=== PATIENT | male | born 1955 | race Caucasian/White ===

== ENCOUNTER 2022-06-19 10:14 | Emergency (ER) | payer BC ==
[2022-06-19] MEDS ORDERED: Sodium Chloride 0.9% 10 ML Syringe FLUSH PRN (10:26)
[2022-06-19] MEDS ORDERED: Gadobenate Dimeglumine 529 MG/ML 15 ML SDV IVPUSH ONE (10:38)
[2022-06-19 10:55] LABS: ANION GAP 9.7 meq/L (7-15)
[2022-06-19] MEDS ORDERED: Sodium Chloride 0.9% 1,000 ML IV ONE (12:28)
== END 2022-06-19 14:40 | disposition home or self-care (01) ==
LOC: LL.ED 10:14
DX: G44.1 Vascular headache, not elsewhere classified (principal); R42 Dizziness and giddiness; H53.8 Other visual disturbances; R26.89 Other abnormalities of gait and mobility
CPT/HCPCS: 36415; 70553; 80053; 85025; 96360; 99285-25; A9577; J7030

== ENCOUNTER 2023-02-24 20:37 | Inpatient (IN) | payer MEDICARE ==
[2023-02-24] MEDS ORDERED: Sodium Chloride 0.9% 1,000 ML IV ONE (21:05)
[2023-02-24 21:29] LABS: BASOPHILS ABSOLUTE AUTO 0.03 K/uL (0.00-0.20); BASOPHILS PERCENT AUTO 0.2 % (0.0-2.0); HEMATOCRIT 47.5 % (39.0-49.0); LYMPHOCYTES ABSOLUTE AUTO 2.98 K/uL (0.50-3.50); LYMPHOCYTES PERCENT AUTO 21.9 % (10.0-50.0); MEAN CORPUSCULAR HEMOGLOBIN 31.1 pg (28.2-33.3); MEAN CORPUSCULAR HGB CONC 33.7 g/dL (31.7-36.0); MEAN CORPUSCULAR VOLUME 92.4 fL (84.0-98.0); MONOCYTES ABSOLUTE AUTO 0.23 K/uL (0.00-1.00); MONOCYTES PERCENT AUTO 1.7 % (2.0-14.0); NEUTROPHILS ABSOLUTE AUTO 10.37 K/uL (1.40-7.00); NEUTROPHILS PERCENT AUTO 76.2 % (45.0-80.0); PLATELET COUNT,PLT 210 K/uL (150-350); RED BLOOD CELL COUNT 5.14 M/uL (4.33-5.41); RED CELL DISTRIBUTION WIDTH 14.3 % (11.2-14.1); WHITE BLOOD CELL COUNT,WBC 13.6 K/uL (4.0-10.2)
[2023-02-24 21:51] LABS: ALANINE AMINOTRANSFERASE,ALT 165 U/L (12-78); ALBUMIN 3.1 g/dL (3.4-5.0); ALKALINE PHOSPHATASE 125 IU/L (46-116); ASPARTATE AMNIOTRANSFERASE,AST 84 U/L (15-37); BILIRUBIN TOTAL 1.5 mg/dL (0.2-1.0); BLOOD UREA NITROGEN,BUN 50 mg/dL (7-18); CALCIUM 8.9 mg/dL (8.5-10.1); CARBON DIOXIDE,CO2 16.9 mmol/L (21.0-32.0); POTASSIUM,K 4.3 mmol/L (3.5-5.1); PROTEIN TOTAL,TP 5.4 g/dL (6.4-8.2)
[2023-02-24 21:53] LABS: ANION GAP 24.4 meq/L (7-15); CHLORIDE,CL 119 mmol/L (98-107); ESTIMATED GFR 39 mL/min (>=60); GLUCOSE RANDOM 471 mg/dL (70-99); SODIUM,NA 156 mmol/L (136-145)
[2023-02-24] MEDS ORDERED: Morphine 2 MG/ML SYRINGE IVPUSH ONE (23:15)
[2023-02-24] MEDS ORDERED: Ondansetron 4 MG/2 ML SDV IVPUSH PRN (23:19)
[2023-02-24] MEDS ORDERED: Sodium Chloride 0.9% 10 ML Syringe FLUSH PRN (23:27)
[2023-02-25] MEDS: Atropine 1% Ophth Soln 5 ML Bottle SL SCH ×2 (00:06→01:37)
[2023-02-25] MEDS ORDERED: Atropine 1% Ophth Soln 5 ML Bottle SL PRN (01:57)
[2023-02-25] MEDS: Morphine 2 MG/ML SYRINGE IVPUSH PRN ×3 (04:29→12:50)
[2023-02-25] MEDS ORDERED: Sodium Chloride 0.9% 10 ML Syringe FLUSH SCH ×2 (08:00)
[2023-02-25] MEDS ORDERED: Sodium Chloride 0.9% 10 ML Syringe FLUSH PRN (13:13)
== END 2023-02-25 13:48 | disposition hospice, home (50) | DRG 951 ==
LOC: LL.ED 20:37 → LL.MS 22:20
PROVIDERS: ADMIT Emergency Medicine; ATTEND Emergency Medicine
DX: Z51.5 Encounter for palliative care (principal); E87.0 Hyperosmolality and hypernatremia; G93.9 Disorder of brain, unspecified; E78.00 Pure hypercholesterolemia, unspecified; K21.9 Gastro-esophageal reflux disease without esophagitis; Z66 Do not resuscitate; I95.9 Hypotension, unspecified; R62.7 Adult failure to thrive; R79.89 Other specified abnormal findings of blood chemistry; F48.8 Other specified nonpsychotic mental disorders; I48.91 Unspecified atrial fibrillation; E11.65 Type 2 diabetes mellitus with hyperglycemia; Z79.84 Long term (current) use of oral hypoglycemic drugs; Z79.899 Other long term (current) drug therapy
CPT/HCPCS: 36415; 80053; 82947; 83605; 84484; 85025; 96360; 99223; 99238; 99285-25; J2270; J2405; J3360; J3490; J7030